=== PATIENT | male | born 2000 | race Two or more races ===

== ENCOUNTER 2022-11-10 17:17 | Outpatient (REF) | payer OTHER, SELFPAY ==
--- NOTE | ~2022-11-10 | XR_ITS ---
EXAMINATION: XR KNEES, STANDING AP CLINICAL INFORMATION: M25.569 - Pain in unspecified knee COMPARISON: None TECHNIQUE: Standing AP view of both knees is performed along with lateral and axial patella views of the right knee. FINDINGS: Right: Normal bony mineralization. No fracture, dislocation, destructive process, or arthropathy. No joint narrowing or erosive change or chondrocalcinosis. No lateralization patella. Left: Normal bony mineralization. No joint narrowing or erosive change. XR/XR knee standing BI IMPRESSION: Unremarkable bilateral knees.
--- NOTE | ~2022-11-10 | XR_ITS ---
EXAMINATION: XR KNEES, STANDING AP CLINICAL INFORMATION: M25.569 - Pain in unspecified knee COMPARISON: None TECHNIQUE: Standing AP view of both knees is performed along with lateral and axial patella views of the right knee. FINDINGS: Right: Normal bony mineralization. No fracture, dislocation, destructive process, or arthropathy. No joint narrowing or erosive change or chondrocalcinosis. No lateralization patella. Left: Normal bony mineralization. No joint narrowing or erosive change. XR/XR knee RT 2V IMPRESSION: Unremarkable bilateral knees.
== END 2022-11-10 17:18 | disposition home or self-care (01) ==
LOC: HO.HOSX 17:17
PROVIDERS: Visit Provider Physician Assistant
DX: M25.561 Pain in right knee (principal); M54.16 Radiculopathy, lumbar region
CPT/HCPCS: 73560; 73565; 99202